=== PATIENT | female | born 1970 | race Caucasian/White ===

== ENCOUNTER 2018-08-26 10:41 | Outpatient (CLI) | payer BC ==
--- NOTE | 2018-08-26 14:00 | MRI ---
MRI LEFT KNEE PERFORMED WITHOUT CONTRAST ENHANCEMENT: HISTORY: Left knee pain and swelling since a fall on 08/09/2018. FINDINGS: The anterior as well as posterior cruciate ligaments are intact. The medial and lateral menisci are normal in shape and appearance. There is edema change, both superficial and deep to the proximal MCL. The meniscotibial and meniscof emoral ligaments appear intact. There is also edema change extending into the proximal MPFL. The la teral collateral ligamentous complex appears unremarkable. The iliotibial band region is normal. Patellar articular cartilage shows some articular cartilage irregularity involving the medial facet a nd apex of the patella. The surface of the articular cartilage is very irregular in this region, and the defect at the apex of the patella involves almost 50% of the thickness of the articular cartilag e in this area. The medial and lateral patellar retinaculum are intact. I do not see any signs of a ny bone contusions or other features that would suggest any type of patellar dislocation. The jamila ceps and patellar tendons are intact. IMPRESSION: 1. No evidence of meniscal or cruciate ligament injury. 2. Proximal medial collateral ligament sprain, which would probably be a grade 2. Edema change also extends into the region of the proximal medial patellofemoral ligament, suggesting some associated m edial patellofemoral ligament injury. 3. Focal articular cartilage irregularity of the medial facet and apex of the patella. There are ar eas of at least 50% loss of articular cartilage in this area. This area measures approximately 11 mm in size. POS: [facility]
== END 2018-08-26 10:42 | disposition home or self-care (01) ==
LOC: TBSIIMAG 10:41
PROVIDERS: ATTEND Orthopaedic Surgery
DX: M23.92 Unspecified internal derangement of left knee (principal); S83.412A Sprain of medial collateral ligament of left knee, initial encounter